=== PATIENT | male | born 1990 | race Caucasian/White ===

== ENCOUNTER 2024-08-10 18:20 | Emergency (ER) | payer OTHER ==
[2024-08-10 18:28] VITALS: TEMP 36.9; O2SAT 97
[2024-08-10 18:49] VITALS: BP 130/69; PULSE 107; RESP 11
[2024-08-10] MEDS: MORPHINE SULFATE 4 MG/ML INJ (FOR IV/IM USE) IV NR (18:49)
[2024-08-10 18:58] LABS: BASOPHILS % 0.9 % (0.0-2.0); EOSINOPHILS % 1.2 % (0.0-5.0); HEMATOCRIT. 40.1 % (42.0-52.0); HEMOGLOBIN. 13.6 g/dL (14.0-18.0); LYMPHOCYTES % 43.5 % (20.0-50.0); MEAN CORPUSCULAR HEMOGLOBIN 32.1 pg (28.0-32.0); MEAN CORPUSCULAR HGB CONC 33.8 g/dL (31.0-37.0); MEAN PLATELET VOLUME 8.1 fl (7.4-10.4); MONOCYTES % 9.1 % (2.0-8.0); NEUTROPHILS % 45.3 % (40.0-76.0); PLATELET 244 x1000/uL (130-400); RED BLOOD CELL COUNT 4.22 mill/uL (4.7-6.1); WHITE BLOOD COUNT 5.3 x1000/uL (4.5-11.0)
[2024-08-10 19:06] LABS: CHLORIDE 109 mEq/L (98-107); POTASSIUM 3.5 mEq/L (3.5-5.1); SODIUM 145 mEq/L (136-145)
[2024-08-10 19:07] LABS: CALCIUM 8.1 mg/dL (8.7-10.4); CARBON DIOXIDE 17 mEq/L (21-32)
[2024-08-10 19:12] LABS: CREATININE 1.2 mg/dL (0.6-1.3); GLUCOSE 101 mg/dL (70-105); UREA NITROGEN BLOOD 28 mg/dL (9-23)
[2024-08-10 19:13] LABS: ETHANOL BLOOD < 10 mg/dL (<10)
[2024-08-10 19:22] LABS: INR 1.1; PARTIAL THROMBOPLASTIN TIME 29.3 sec (23.4-31.0); PROTHROMBIN TIME 11.6 sec (9.6-11.0)
== END 2024-08-10 18:56 | disposition short-term general hospital (02) ==
LOC: EDBD 18:20 → ER 18:20
DX: S31.134A Puncture wound of abdominal wall without foreign body, left lower quadrant without penetration into peritoneal cavity, initial encounter (principal); S61.212A Laceration without foreign body of right middle finger without damage to nail, initial encounter; S61.217A Laceration without foreign body of left little finger without damage to nail, initial encounter; Z79.899 Other long term (current) drug therapy; Y08.89XA Assault by other specified means, initial encounter; Y93.89 Activity, other specified; Y92.89 Other specified places as the place of occurrence of the external cause; Y99.8 Other external cause status
CPT/HCPCS: 80048; 80320; 85025; 85610; 85730; 36415; 71045; 96374; 99291; J2270; Z7610; G0480